=== PATIENT | female | born 1930 ===

== ENCOUNTER 2016-11-10 11:43 | Observation (INO) | payer MEDICARE ==
[2016-11-10 11:43] VITALS: BMI 32.5
[2016-11-10 12:24] VITALS: RESP 18
[2016-11-10] MEDS ORDERED: Sodium Chloride 0.9% 1,000 ML IV STA (13:34)
--- NOTE | 2016-11-10 13:40 | ED PDOC ---
HPI: General Adult Time Seen by Provider: 11/10/16 12:20 Chief Complaint (Nursing): Female Genitourinary Chief Complaint (Provider): Abdominal Pain/Vaginal Discharge History Per: Patient History/Exam Limitations: no limitations Onset/Duration Of Symptoms: Persistent (~1 month) Current Symptoms Are (Timing): Still Present Additional Complaint(s): Vikram Christine is an 86 year old female with a history of hypertension, GI ulcers, high lipids, hypothyroidism, and a family history of cancer that presents to the ED with a chief complaint of diffuse abdominal pain that is worse at night, as well vaginal discharge that appears to be mucus that she has been experiencing for the last month. She denies any fever, nausea, or vomiting. Of Note: Patient was recently worked up for an endometrial mass, and had a CT Scan performed last month that showed a suspicious finding in the endometrium. Patient had a follow up biopsy, which did not note any malignancy. She reports that she wants to follow up with an oncologist, and was referred to one by her PMD, Dr. Mcallister, but presents to the ED for pain control in the meantime. Past Medical History Reviewed: Historical Data, Nursing Documentation, Vital Signs Vital Signs: Last Vital Signs Temp 97.6 F 11/10/16 17:46 Pulse 80 11/10/16 17:46 Resp 18 11/10/16 17:46 BP 127/82 11/10/16 17:46 Pulse Ox 96 11/10/16 15:39 - Medical History PMH: Deep Vein Thrombosis, Gastritis, Gastrointestinal Ulcer, HTN, Hyperlipidemia, Hypothyroidism, Sleep Apnea Denies: Chronic Kidney Disease - Family History Family History: States: Unknown Family Hx - Social History Ex-Smoker (has not smoked in the last 12 months): Yes Alcohol: None Drugs: Denies - Immunization History Hx Tetanus Toxoid Vaccination: No Hx Influenza Vaccination: No Hx Pneumococcal Vaccination: No - Home Medications Home Medications: Ambulatory Orders Medication Instructions Recorded Glimepiride 4 mg PO DAILY 08/06/15 Levothyroxine [Synthroid] 75 mcg PO DAILY 08/06/15 Losartan [Cozaar] 50 mg PO DAILY 08/06/15 [place]-3 Fatty Acids [[place]-3] 1,000 mg PO DAILY 11/10/16 Vitamin B Complex [Balance B-50] 1 tab PO DAILY 11/10/16 - Allergies Allergies/Adverse Reactions: Allergies Allergy/AdvReac Type Severity Reaction Status Date / Time Penicillins Allergy Mild RASH Verified 11/10/16 17:18 aspirin Allergy RASH Verified 11/10/16 17:18 Sulfa (Sulfonamide Allergy RASH Verified 11/10/16 17:18 Antibiotics) anesthesia med Allergy RASH Uncoded 11/10/16 17:18 Review of Systems Constitutional: Negative for: Fever Gastrointestinal: Positive for: Abdominal Pain (diffuse, worse at night). Negative for: Nausea, Vomiting Genitourinary Female: Positive for: Vaginal Discharge (appears to be mucus) Physical Exam - Reviewed Nursing Documentation Reviewed: Yes Vital Signs Reviewed: Yes - Physical Exam Appears: Positive for: Non-toxic, No Acute Distress Head Exam: Positive for: ATRAUMATIC, NORMOCEPHALIC Skin: Positive for: Normal Color, Warm Cardiovascular/Chest: Positive for: Regular Rate, Rhythm. Negative for: Murmur Respiratory: Positive for: Normal Breath Sounds. Negative for: Wheezing Gastrointestinal/Abdominal: Positive for: Normal Exam, Soft. Negative for: Tenderness Neurologic/Psych: Positive for: Alert, Oriented. Negative for: Motor/Sensory Deficits - Laboratory Results Result Diagrams: 11/10/16 13:48 11/10/16 13:48 - ECG O2 Sat by Pulse Oximetry: 96 (RA) Pulse Ox Interpretation: Normal Medical Decision Making Medical Decision Making: Impression: Abdominal Pain Plan: * CMP * CBC * Lipase * Urine C&S * Urinalysis * Pepcid 20 mg IV * NaCl 1000 mL at 1000 mLs/hr * Zofran Inj 4 mg IV * Reevaluation CT Abdomen and Pelvis with Contrast obtained from [facility] - Official Read: IMPRESSION: 1. Soft tissue in the endometrium with some fluid also noted in the endometrial canal. The possibility of endometrial cancer should be considered. Multiple enlasrged lymph nodes are noted in the retroperitoneum and in the pelvis, especially along the iliac chains and alond the pelvic sidewalls. 2. Liver appears homogenous. No aggressive osseous lesions are seen. The lung bases are essentially clear with minimal atelectatic changes. 3. Diverticulosis. No evidence of diverticulitis. 4. Mesenteric panniculitis. END IMPRESSION: Pelon Peoples MD Patient reevaluated and continues to have pain, she was given Morphine. Spoke to Medical Canine Service Instructor Trainer who accepted admission of the patient for intractable pain. 15:38: Spoke with Dr. ramirez who is plant controls specialist, and will order an US. Scribe Attestation: Documented by Karlee Enamorado and Joanne Ross, acting as a scribe for Cammie Rodgers MD. Provider Scribe Attestation: All medical record entries made by the Scribe were at my direction and personally dictated by me. I have reviewed the chart and agree that the record accurately reflects my personal performance of the history, physical exam, medical decision making, and the department course for this patient. I have also personally directed, reviewed, and agree with the discharge instructions and disposition. Disposition - Clinical Impression Clinical Impression: Female genitourinary symptoms - Patient ED Disposition Is Patient to be Admitted: Yes Counseled Patient/Family Regarding: Studies Performed, Diagnosis - Disposition Disposition Time: 15:00 Condition: STABLE
[2016-11-10 14:10] LABS: RBC URINE 14 /hpf (0-3); URINE BILIRUBIN NEGATIVE (NEGATIVE); URINE BLOOD NEGATIVE (NEGATIVE); URINE COLOR AMBER (YELLOW); URINE GLUCOSE (UA) NEG (Normal); URINE KETONE NEGATIVE (NEGATIVE); URINE LEUKOCYTE ESTERASE LARGE Leu/uL (Negative); URINE PROTEIN 30 mg/dL (NEGATIVE); URINE UROBILINOGEN 0.2-1.0 mg/dL (0.2-1.0); WBC URINE 44 /hpf (0-5)
[2016-11-10 14:12] LABS: BASO % 0.6 % (0.0-2.0); EOS # 0.1 K/uL (0.0-0.7); EOS % 1.8 % (0.0-4.0); HEMATOCRIT 40.8 % (34.0-47.0); LYMPH # 1.5 K/uL (1.0-4.3); LYMPH % 26.7 % (20.0-40.0); MEAN CELL VOLUME 97.1 fl (81.0-99.0); MEAN CORPUSCULAR HEMOGLOBIN 33.8 pg (27.0-31.0); MEAN CORPUSCULAR HGB CONC 34.8 g/dL (33.0-37.0); MONO # 0.5 K/uL (0.0-0.8); MONO % 9.5 % (0.0-10.0); NEUT # 3.4 K/uL (1.8-7.0); NEUT % 61.4 % (50.0-75.0); NRBC % 0.1 % (0.0-0.0); RED CELL DISTRIBUTION WIDTH 14.1 % (11.5-14.5); WHITE BLOOD COUNT 5.6 K/uL (4.8-10.8)
[2016-11-10 14:28] LABS: ALB/GLOB RATIO 1.1 (1.0-2.1); ALKALINE PHOSPHATASE 63 U/L (38-126); ALT/SGPT 38 U/L (9-52); AST/SGOT 33 U/L (14-36); BILIRUBIN,TOTAL 0.8 mg/dl (0.2-1.3); BLOOD UREA NITROGEN 21 mg/dl (7-17); CALCIUM 9.9 mg/dL (8.4-10.2); CARBON DIOXIDE 26 mmol/L (22-30); CHLORIDE 106 mmol/L (98-107); GFR AFRICAN-AMERICAN > 60; GLUCOSE,RANDOM 86 mg/dL (65-105); LIPASE 113 U/L (23-300); POTASSIUM 4.4 MMOL/L (3.6-5.0); SODIUM 143 mmol/l (132-148); TOTAL PROTEIN 8.4 G/DL (6.3-8.2)
--- NOTE | 2016-11-10 18:43 | US ---
Indication: Possible endometrial mass Pelvis ultrasound Technique: Transabdominal pelvic ultrasound Comparison: None available Findings: Limited transabdominal pelvic ultrasound. The patient was unable to maintain adequately filled urinary bladder for this examination. The uterus measures approximately 8.7 x 3.6 x 5.6 cm. Anteverted. Several uterine calcifications are evident. Suspect 1.6 x 0.5 x 1.4 cm calcified uterine fibroid superiorly. The endometrium is not well visualized ; a measurement was provided of approximately 5 mm. Bilateral ovaries are not visualized. No significant pelvic free fluid is seen. Impression: Extremely limited transabdominal pelvic ultrasound as above. Bilateral ovaries were not seen. The endometrium was not visualized to satisfaction. The patient presents with outside CT report from 10/20/16 which indicates presence of pelvic mass which is not adequately assessed on this study. Correlate clinically and further evaluation as indicated. Several uterine calcifications are noted. Suspect the presence of 1.6 cm calcified uterine fibroid.
[2016-11-10] MEDS: Insulin Regular 100 units/ml SC SCH (22:43)
--- NOTE | 2016-11-10 23:12 | CP.PCM.CON ---
History of Present Illness - History of Present Illness History of Present Illness: The patient is an 86 y/o woman with a history of hypertension, diabetes mellitus type 2, GI ulcers, hyperlipidemia, hypothyroidism, and a family history of cancer that presents to the ED with a chief complaint of diffuse abdominal pain that is worse at night, as well vaginal discharge that appears to be mucus that she has been experiencing for the last month. Patient reports pruritus but denies vaginal bleeding or abnormal odor. She denies any fever, nausea, or vomiting. Patient denies sexually activity and history of STDs. Patient had menopause at age 51 and menarche at age 14. Patient was recently worked up for an endometrial mass, and had a CT Scan performed last month that showed a suspicious finding in the endometrium. Patient had a follow up biopsy, which did not note any malignancy. She reports that she wants to follow up with an oncologist, and was referred to one by her PMD, Dr. Mcallister, but presents to the ED for pain control in the meantime. OBHx: x2 , x2 SAB (twins) HOLISTIC NUTRITIONIST: menopause age 51, menarche age 14, no Hx of dysmenorrhea, no Hx of STDs SOC: denies smoking, alcohol, and drugs; denies sexual activity in in the past 2 years ROS: negative for 12 points reviewed Review of Systems - Review of Systems All systems: reviewed and no additional remarkable complaints except - Constitutional Constitutional: absent: Fever - Cardiovascular Cardiovascular: absent: Chest Pain - Respiratory Respiratory: absent: Dyspnea - Gastrointestinal Gastrointestinal: As Per HPI - Genitourinary Genitourinary: absent: Change in Urinary Stream, Dysuria, Hematuria - Reproductive: Female Reproductive:Female: Menopausal, Vaginal Pruritis. absent: Genital Lesions, Vaginal Odor Past Patient History - Infectious Disease Hx of Infectious Diseases: None - Past Medical History & Family History Past Medical History?: Yes - Past Social History Alcohol: None Drugs: Denies - CARDIAC Hx Hypertension: Yes - PULMONARY Hx Sleep Apnea: Yes - NEUROLOGICAL Hx Neurological Disorder: Yes - HEENT Hx HEENT Problems: Yes Hx Cataracts: Yes (removed) - RENAL Hx Chronic Kidney Disease: No - ENDOCRINE/METABOLIC Hx Hypothyroidism: Yes - HEMATOLOGICAL/ONCOLOGICAL Hx Blood Disorders: No - INTEGUMENTARY Hx Dermatological Problems: No - MUSCULOSKELETAL/RHEUMATOLOGICAL Hx Musculoskeletal Disorders: No Other/Comment: thrombosis - GASTROINTESTINAL Hx Gastritis: Yes - GENITOURINARY/GYNECOLOGICAL Hx Genitourinary Disorders: Yes - PSYCHIATRIC Hx Psychophysiologic Disorder: No - SURGICAL HISTORY Hx Surgeries: Yes Hx Cataract Extraction: Yes (TRINY) Hx Orthopedic Surgery: Yes (HEEL SPUR) Hx Vascular Surgery: Yes (VARICOSE VEIN REMOVAL) - ANESTHESIA Hx Anesthesia: Yes Hx Anesthesia Reactions: No Hx Malignant Hyperthermia: No Meds Allergies/Adverse Reactions: Allergies Allergy/AdvReac Type Severity Reaction Status Date / Time Penicillins Allergy Mild RASH Verified 11/10/16 17:18 aspirin Allergy RASH Verified 11/10/16 17:18 Sulfa (Sulfonamide Allergy RASH Verified 11/10/16 17:18 Antibiotics) anesthesia med Allergy RASH Uncoded 11/10/16 17:18 - Medications Medications: Current Medications Fluconazole (Diflucan) 100 mg PO DAILY [facility] Glipizide (Glucotrol Xl) 10 mg PO DAILY [facility] Home Med (Vitamin B Complex [Balance B-50]) 1 tab PO DAILY [facility] Insulin Human Regular (Humulin R) 0 units SC ACCU-CHECK SHAHID PRN Reason: Protocol Levothyroxine Sodium (Synthroid) 75 mcg PO DAILY@0630 [facility] Losartan Potassium (Cozaar) 50 mg PO DAILY [facility] Ltuus-8-Mplc Ethyl Esters (Lovaza) 1 gm PO DAILY [facility] Physical Exam - Constitutional Appears: No Acute Distress - Head Exam Head Exam: ATRAUMATIC, NORMOCEPHALIC - Respiratory Exam Respiratory Exam: Clear to Auscultation Bilateral - Cardiovascular Exam Cardiovascular Exam: REGULAR RHYTHM - Exam Speculum exam: Vaginal Discharge. absent: Foreign Body, Laceration, Vaginal Bleeding Bimanual exam: absent: Adenexal Mass, Cervical Motion Tendernes, Uterine Tenderness Results - Vital Signs Recent Vital Signs: Last Vital Signs Temp 98.2 F 11/10/16 20:44 Pulse 85 11/10/16 20:44 Resp 18 11/10/16 20:44 BP 113/74 11/10/16 20:44 Pulse Ox 98 11/10/16 20:44 - Labs Result Diagrams: 11/10/16 13:48 11/10/16 13:48 Labs: Laboratory Results - last 24 hr 11/10/16 21:23 POC Glucose (mg/dL) 141 H Assessment & Plan - Assessment and Plan (Free Text) Assessment: The patient is an 86 y/o woman with a history of hypertension, diabetes mellitus type 2, GI ulcers, hyperlipidemia, hypothyroidism, and a family history of cancer that presents w/ vaginal discharge and pruritus Plan: 1. vaginal discharge - speculum exam shows vaginal discharge, white, mucus; no lesions, no bleeding - bimanual exam shows no adnexal tenderness, no cervical motion tenderness - cultures taken, follow up results - clotrimazole topical cream for candidiasis 2. Enodmetrial mass - endometrial biopsy 10/14/2016: negative for malignancy, atrophic endometrium, squamous epithelium w/o cytologic atypia - CT 10/20/2016: soft tissue in endometrium w/ some fluid, multiple enlarged lymph nodes in retroperitoneum and pelvis - pelvic U/S 11/10/2016: limited study - follow up w/ director of user experience oncologist
[2016-11-11] MEDS ORDERED: Levothyroxine 75 MCG TAB PO SCH (06:30)
[2016-11-11] MEDS: Insulin Regular 100 units/ml SC SCH ×2 (08:00→13:18)
[2016-11-11] MEDS ORDERED: Omega-3-Acid Ethyl Esters 1 GM Cap PO SCH (09:00)
[2016-11-11] MEDS ORDERED: GlipiZIDE 10 mg SR Tab PO SCH (09:00)
[2016-11-11] MEDS ORDERED: Multivitamin Vitamin B Complex (Nephro-Vite) Tab PO SCH (09:00)
--- NOTE | 2016-11-11 12:20 | CP.PCM.HP ---
History of Present Illness - History of Present Illness History of Present Illness: Vikram Christine is an 86 year old female with a history of hypertension, GI ulcers, high lipids, hypothyroidism, and a family history of cancer that presents to the ED with a chief complaint of diffuse abdominal pain that is worse at night, as well vaginal discharge that appears to be mucus that she has been experiencing for the last month. She denies any fever, nausea, or vomiting. Patient was recently worked up for an endometrial mass, and had a CT Scan performed last month that showed a suspicious finding in the endometrium. Patient had a follow up biopsy, which did not note any malignancy. She reports that she wants to follow up with an oncologist, and was referred to one by her PMD, Dr. Mcallister, but presents to the ED for pain control in the meantime. Present on Admission - Present on Admission History of DVT/PE: No History of Uncontrolled Diabetes: No Urinary Catheter: No Decubitus Ulcer Present: No Review of Systems - EENT Eyes: As Per HPI Ears: As Per HPI Nose/Mouth/Throat: As Per HPI - Breasts Breasts: As Per HPI - Cardiovascular Cardiovascular: As Per HPI - Genitourinary Genitourinary: As Per HPI - Reproductive: Female Reproductive:Female: Vaginal Discharge, Vaginal Odor, Vaginal Pruritis Past Patient History - Infectious Disease Hx of Infectious Diseases: None - Past Medical History & Family History Past Medical History?: Yes - Past Social History Alcohol: None Drugs: Denies - CARDIAC Hx Hypertension: Yes - PULMONARY Hx Sleep Apnea: Yes - NEUROLOGICAL Hx Neurological Disorder: Yes - HEENT Hx HEENT Problems: Yes Hx Cataracts: Yes (removed) - RENAL Hx Chronic Kidney Disease: No - ENDOCRINE/METABOLIC Hx Hypothyroidism: Yes - HEMATOLOGICAL/ONCOLOGICAL Hx Blood Disorders: No - INTEGUMENTARY Hx Dermatological Problems: No - MUSCULOSKELETAL/RHEUMATOLOGICAL Hx Musculoskeletal Disorders: No Other/Comment: thrombosis - GASTROINTESTINAL Hx Gastritis: Yes - GENITOURINARY/GYNECOLOGICAL Hx Genitourinary Disorders: Yes - PSYCHIATRIC Hx Psychophysiologic Disorder: No - SURGICAL HISTORY Hx Surgeries: Yes Hx Cataract Extraction: Yes (TRINY) Hx Orthopedic Surgery: Yes (HEEL SPUR) Hx Vascular Surgery: Yes (VARICOSE VEIN REMOVAL) - ANESTHESIA Hx Anesthesia: Yes Hx Anesthesia Reactions: No Hx Malignant Hyperthermia: No Meds Home Medications: Home Medication List Medication Instructions Recorded Confirmed Type Clotrimazole 1% Vaginal [Lotrimin 1 applic VG HS #1 tub 11/11/16 Rx 1% Vaginal] Allergies/Adverse Reactions: Allergies Allergy/AdvReac Type Severity Reaction Status Date / Time Penicillins Allergy Mild RASH Verified 11/10/16 17:18 aspirin Allergy RASH Verified 11/10/16 17:18 Sulfa (Sulfonamide Allergy RASH Verified 11/10/16 17:18 Antibiotics) anesthesia med Allergy RASH Uncoded 11/10/16 17:18 Physical Exam - Constitutional Appears: Well, No Acute Distress, In Acute Distress - Head Exam Head Exam: ATRAUMATIC, NORMAL INSPECTION, NORMOCEPHALIC - Eye Exam Eye Exam: Normal appearance Pupil Exam: NORMAL ACCOMODATION, PERRL - ENT Exam ENT Exam: Mucous Membranes Moist, Normal Exam - Respiratory Exam Respiratory Exam: Clear to Auscultation Bilateral, NORMAL BREATHING PATTERN - Cardiovascular Exam Cardiovascular Exam: REGULAR RHYTHM - GI/Abdominal Exam GI & Abdominal Exam: Normal Bowel Sounds - Rectal Exam Rectal Exam: NORMAL INSPECTION - Exam Exam: NORMAL INSPECTION Speculum exam: Vaginal Discharge Results - Vital Signs Recent Vital Signs: Last Vital Signs Temp 98.4 F 11/11/16 08:00 Pulse 63 11/11/16 08:16 Resp 18 11/11/16 08:00 BP 130/68 11/11/16 08:16 Pulse Ox 95 11/11/16 08:00 - Labs Result Diagrams: 11/10/16 13:48 11/10/16 13:48 Labs: Laboratory Results - last 24 hr 11/10/16 11/11/16 11/11/16 21:23 05:32 11:28 POC Glucose (mg/dL) 141 H 89 210 H Assessment & Plan - Assessment and Plan (Free Text) Assessment: abdominal pain-resolved, tolerating diet candidiasis with vaginal discharge, pruritus -seen by STAGE BUILDER-started on clotrimazole daily -endometrial mass: endometrial biopsy 10/14/2016: negative for malignancy, atrophic endometrium, squamous epithelium w/o cytologic atypia CT 10/20/2016: soft tissue in endometrium w/ some fluid, multiple enlarged lymph nodes in retroperitoneum and pelvis pelvic U/S 11/10/2016: limited study Discussed with OB resident, Mike working with Dr Gr, patients needs to follow up with STAGE [employer]IL[employer] oncologist outpatient for follow up treatment. Will refer to STAGE BUILDER oncology. Patient medically stable for discharge at this time rx for clotrimazole given - Date & Time Date: 11/11/16 Time: 12:20
[2016-11-11 12:37] VITALS: BP 154/82; PULSE 57; TEMP 98; O2SAT 97
== END 2016-11-11 14:20 | disposition home or self-care (01) ==
LOC: H.ER 11:43 → INTOOBSV 15:25 → H.ERHOLD 15:25 → H.TEL 21:50
PROVIDERS: ADMIT Family Medicine; ATTEND Family Medicine
DX: R10.84 Generalized abdominal pain (principal); B37.9 Candidiasis, unspecified; E03.9 Hypothyroidism, unspecified; E11.9 Type 2 diabetes mellitus without complications; E78.5 Hyperlipidemia, unspecified; G47.30 Sleep apnea, unspecified; I10 Essential (primary) hypertension; L29.9 Pruritus, unspecified; N85.9 Noninflammatory disorder of uterus, unspecified; N89.8 Other specified noninflammatory disorders of vagina; Z80.9 Family history of malignant neoplasm, unspecified; Z88.6 Allergy status to analgesic agent; Z88.0 Allergy status to penicillin; Z88.2 Allergy status to sulfonamides; Z86.718 Personal history of other venous thrombosis and embolism; K29.70 Gastritis, unspecified, without bleeding
CPT/HCPCS: 76856; 80053; 81003; 82948; 83690; 85025; 87070; 87086; 96361; 96374; 96375; 99285; G0378; J2405; J7040

== ENCOUNTER 2017-02-08 09:05 | Day surgery (SDC) | payer MEDICARE ==
[2017-02-08] MEDS ORDERED: Lactated Ringer's 500 ML IV ONE (11:40)
[2017-02-08] MEDS ORDERED: Etomidate 20 mg/10ml Inj IV ONE (11:53)
[2017-02-08] MEDS ORDERED: Propofol 10 mg/ml Inj (20 ML) ONE (11:53)
[2017-02-08 12:11] VITALS: TEMP 97
[2017-02-08 12:23] VITALS: BP 123/69; PULSE 69; RESP 15; O2SAT 97
== END 2017-02-08 12:24 | disposition home or self-care (01) ==
LOC: H.ENDO 09:05
PROVIDERS: ATTEND Internal Medicine Gastroenterology
DX: R12 Heartburn (principal); E11.9 Type 2 diabetes mellitus without complications; E03.9 Hypothyroidism, unspecified; K44.9 Diaphragmatic hernia without obstruction or gangrene; K31.9 Disease of stomach and duodenum, unspecified
CPT/HCPCS: 43239; 88305; J2001; J2704; J7120

== ENCOUNTER 2017-02-19 07:54 | Day surgery (SDC) | payer MEDICARE ==
[2017-02-19 08:13] VITALS: BMI 33.3
[2017-02-19] MEDS ORDERED: Clindamycin 600 MG in Sodium Chloride 0.9% 100 ML IVPB ONE (08:30)
[2017-02-19] MEDS ORDERED: Bupivacaine 0.5% Inj(30mL) IJ ONE ×2 (08:30→10:37)
[2017-02-19] MEDS ORDERED: Sodium Chloride 0.9% 1,000 ML IV SCH (08:30)
[2017-02-19] MEDS ORDERED: Lidocaine 1% Inj (20ml) IJ ONE ×2 (08:30→10:37)
--- NOTE | 2017-02-19 08:35 | CP.SDSHP ---
Same Day Surgery H & P - History Proposed Procedure: Left foot 5th Hammertoe repair, resection of bony neoplasm Pre-Op Diagnosis: 5th digit hammertoe/possible neoplasm left foot - Allergies Allergies: Allergies Penicillins Allergy (Mild, Verified 02/08/17 11:38) RASH aspirin Allergy (Verified 02/08/17 11:38) RASH Sulfa (Sulfonamide Antibiotics) Allergy (Verified 02/08/17 11:38) RASH anesthesia med Allergy (Uncoded 02/08/17 11:38) RASH - Physical Exam Mental Status: Alert & Oriented x3 Neuro: WNL Heart: WNL Lungs: WNL GI: WNL - {Optional Preform as Required} Ortho: Other - Impression Impression: Pt was seen and examined in SDS. Pt NPO status was confirmed. All Pre-op testing and clearance was in the chart. Pt has exhausted all conservative treatment at this time and is opting for surgical intervention. Pt was explained procedure and post-operative course. All pt's questions were answered to satisfaction. No guarantees were made. Pt understands all risks, benefits and complications of procedure. Pt will follow-up with Dr. Perdomo Short Stay Discharge - Short Stay Discharge Admitting Diagnosis/Reason for Visit: D48.1/ M20.42/ Disposition: HOME/ ROUTINE Referrals: FAMILY PROVIDER,NO [Primary Care Provider] - Additional Instructions (Diet, Activity): Patient in good/stable condition for discharge home. Pt to resume medications per medical reconciliation. Resume regular diet. Please keep dressing clean, dry, & intact to surgical site, use plastic bag over bandage for showering, wear post op shoe at all times when ambulating, call clinic if you see signs of infection (redness, swelling, malodor), please make an appointment to see Dr. Perdomo in office/clinic within 1 week for post-op check. Progress Note/Discharge Note with Instructions: - Patient evaluated bedside in recovery s/p surgical procedure. - After surgical procedure patient in NAD - (+) Void, (+) Appetite - Capillary refill time <3s and NVSI intact. - Patient denies complaints at this time - Post operative instructions and plan of care explained to patient at length. - Pt. acknowledges understanding. - Patient stable for DC per podiatric surgery
--- NOTE | 2017-02-19 08:41 | CP.PCM.PN ---
Subjective - Date & Time of Evaluation Date of Evaluation: 02/19/17 Time of Evaluation: 08:35 - Subjective Subjective: 86 y/o female with PMHx of DM, hypothyroidism, and hx of DVT seen at bedside in [facility] for left foot 5th digit hammertoe repair, resection of bony neoplasm. Patient states that the 5th toe is starting to rub in her shoe and cause her pain which led her decision to have the surgery. Patient states that she has been NPO since 6 pm yesterday. Patient states that she does not tolerate anesthesia well. Patient denies of any recent F/N/V/C/SOB/CP today. Patient denies of any other pedal complains at this time PMHx: DM, Hypothyroidism, Hx of DVT PSHx: Right foot surgery, Eye surgery Allergies: Penicillins, Aspirin, Sulfa drugs, adverse reaction to anesthesia Objective - Medications Medications: Current Medications Bupivacaine HCl (Marcaine 0.5%) 50 ml IJ ONCE ONE Stop: 02/19/17 08:31 Clindamycin Phosphate 600 mg/ (Sodium Chloride) 54 mls @ 54 mls/hr IVPB ONCE ONE Stop: 02/19/17 09:29 Sodium Chloride (Sodium Chloride 0.9%) 1,000 mls @ 120 mls/hr IV .Q8H20M SHAHID Stop: 02/20/17 08:31 Lidocaine HCl (Lidocaine 1% (20ml)) 20 ml IJ ONCE ONE Stop: 02/19/17 08:31 - Constitutional Appears: Well, Non-toxic, No Acute Distress - Extremities Exam Additional comments: Left LE focused exam: VASC: DP/PT pulses are palpable 2/4, MEDICAL ANTHROPOLOGY DIRECTOR: < 3 sec to all digits, Temp gradient: warm to cool from proximal to distal, +1 pitting edema noted on the dorsum of the foot DERM: no erythema, no open lesions, no clinical suspicion of active infection NEURO: Protective sensation grossly intact ORTHO: hammering of the 5th digit, minimal tenderness on palpation of the 5th digit - Neurological Exam Neurological Exam: Alert, Awake, Oriented x3 - Psychiatric Exam Psychiatric exam: Normal Affect, Normal Mood Assessment and Plan - Assessment and Plan (Free Text) Assessment: 86 y/o female seen at bedside in [facility] for 5th digit hammer toe/neoplasm correction on the left foot Plan: Pt was seen and examined in [facility] Pt NPO status was confirmed All Pre-op testing and clearance was in the chart Pt has exhausted all conservative treatment at this time and is opting for surgical intervention Pt was explained procedure and post-operative course All pt's questions were answered to satisfaction No guarantees were made Pt understands all risks, benefits and complications of procedure Pt will follow-up with Dr. Perdomo
[2017-02-19] MEDS ORDERED: Lactated Ringer's 500 ML IV ONE (09:20)
[2017-02-19 09:43] LABS: HEMATOCRIT 39.5 % (34.0-47.0); MEAN CELL VOLUME 98.3 fl (81.0-99.0); MEAN CORPUSCULAR HEMOGLOBIN 33.4 pg (27.0-31.0); RED CELL DISTRIBUTION WIDTH 13.3 % (11.5-14.5); WHITE BLOOD COUNT 5.5 K/uL (4.8-10.8)
[2017-02-19 09:57] LABS: PARTIAL THROMBOPLASTIN TIME 28.1 Seconds (25.6-37.1)
[2017-02-19] MEDS ORDERED: Bupivacaine 0.5% Inj(30mL) ONE (10:00)
[2017-02-19] MEDS ORDERED: Lidocaine 1% Inj (20ml) ONE (10:00)
[2017-02-19 10:03] LABS: BLOOD UREA NITROGEN 18 mg/dl (7-17); CALCIUM 9.5 mg/dL (8.4-10.2); CARBON DIOXIDE 23 mmol/L (22-30); CHLORIDE 107 mmol/L (98-107); GFR AFRICAN-AMERICAN > 60; GLUCOSE,RANDOM 90 mg/dL (65-105); POTASSIUM 3.9 MMOL/L (3.6-5.0); SODIUM 145 mmol/l (132-148)
[2017-02-19] MEDS ORDERED: Propofol 10 mg/ml Inj (20 ML) ONE (10:15)
[2017-02-19] MEDS ORDERED: Midazolam 2 MG/2 ML VIAL ONE (10:16)
[2017-02-19] MEDS ORDERED: Bupivacaine 0.5% 50 ML IJ ONE (11:00)
[2017-02-19] MEDS ORDERED: Dexamethasone 4 mg/1 ml IM ONE (11:00)
[2017-02-19] MEDS ORDERED: Dexamethasone 4 mg/1 ml ONE (11:08)
--- NOTE | 2017-02-19 11:14 | PCM.SURG1 ---
Surgeon's Initial Post Op Note - Surgeon's Notes Surgeon: Dr. Jonathan Perdomo DPM Coater Smoking Pipe: Dr. White (PGY-2), Dr. Hills (PGY-1) Type of Anesthesia: IV Sedation, Local Anesthesia Administered By: Dr. 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 M:4-5 K wire, 2-0. 4-0 nylone. I: 1 cc of dexamethasone, 4 cc of 0.5% marcain plain Post-Operative Diagnosis: same Operation Performed: Left foot 5th digit Hammer toe repair, removal of soft tissue calcification Specimen/Specimens Removed: Calcification soft tissue mass Estimated Blood Loss: EBL {In ML}: 1 Blood Products Given: N/A Drains Used: No Drains Post-Op Condition: Good Date of Surgery/Procedure: 02/19/17 Time of Surgery/Procedure: 11:16
[2017-02-19] MEDS ORDERED: HYDROmorphone 0.5 mg/0.5 ml ISec IVP PRN (11:17)
[2017-02-19] MEDS ORDERED: Lactated Ringer's 1,000 ML IV SCH (11:30)
--- NOTE | 2017-02-19 11:58 | RAD ---
HISTORY: preop COMPARISON: No prior. TECHNIQUE: Chest PA and lateral FINDINGS: LUNGS: No active pulmonary disease. PLEURA: No significant pleural effusion identified. No pneumothorax apparent. CARDIOVASCULAR: Normal. OSSEOUS STRUCTURES: No significant abnormalities. VISUALIZED UPPER ABDOMEN: Normal. OTHER FINDINGS: None. IMPRESSION: No active disease.
[2017-02-19 12:17] VITALS: RESP 20
--- NOTE | 2017-02-19 12:51 | RAD ---
PROCEDURE: Left Foot Radiographs. HISTORY: s/p left foot surgery COMPARISON: None. FINDINGS: BONES: A status post distal proximal phalanx osteotomy and fixation of the interphalangeal joints of the left 5th digit by a solitary K-wire. Otherwise, degenerate changes seen throughout the digits diffusely. Postop changes seen in soft tissues related to the 5th digit no suspicious lytic or blastic changes. JOINTS: As above peer SOFT TISSUES: As above. OTHER FINDINGS: None. IMPRESSION: Postop changes left 5th digit as discussed above.
[2017-02-19 14:18] VITALS: BP 121/76; PULSE 78; TEMP 97.8; O2SAT 97
--- NOTE | 2017-02-20 06:00 | OP ---
PROCEDURE DATE: 02/19/2017 PREOPERATIVE DIAGNOSES: 1. Left foot bony tumor, fifth digit. 2. Left foot hammertoe deformity, fifth digit. POSTOPERATIVE DIAGNOSES: 1. Left foot bony tumor, fifth digit. 2. Left foot hammertoe deformity, fifth digit. PROCEDURE: 1. Excisional biopsy, fifth toe tumor left foot. 2. Proximal interphalangeal joint arthroplasty with K-wire fixation, left foot fifth digit. SURGEON: Jonathan Perdomo DPM. ASSISTANTS: Natalia White DPM, PGY-2; Edy Hills DPM, PGY-1. TYPE OF ANESTHESIA: IV sedation with local. ANESTHESIA ADMINISTERED BY: Sonam Maciel MD. INDICATION: The patient is an 86-year-old female with the above-mentioned diagnoses. The patient has exhausted all conservative treatments at this time and now requires surgical interventions. The patient signed the consent after careful explanation of risks, benefits, complications and alternatives for surgical procedure. No guarantees were given or implied. PREPARATION: The patient was brought into the operating room and placed on the operating room table in a supine position. A well-padded pneumatic ankle tourniquet was applied to the patient's left ankle on the supramalleolar position. A time-out was performed for identification of correct patient and procedure. The patient received a total of 10 mL of 1:1 mixture of 1% lidocaine plain and 0.5% Marcaine plain in a local block fashion to the left fifth digit. Once local anesthesia was achieved, the left foot was then prepped and draped in the normal sterile manner and the procedure began. PROCEDURE 1: Excisional biopsy of the fifth toe tumor on the left foot: Attention was directed to the dorsal aspect of the fifth digit where an approximately 2 cm linear longitudinal incision was made over the prominence on the digit. Sharp dissection was carried down to the subcutaneous tissue being careful to identify and retract all vital neurovascular structures. All bleeders were ligated and cauterized as necessary. The mass was then noted and then excisionally removed from the digit utilizing pickups and a #15 blade and then passed off the field and sent for pathology. The mass measured approximately 0.3 cm x 0.4 cm calcification. The site was then irrigated with copious amounts of normal sterile saline. PROCEDURE 2: Left fifth digit PIPJ arthroplasty: Next, via the original incision, sharp dissection was carried down to the deep tissues being careful to identify and retract all vital neurovascular structures. At this time, a transverse tenotomy and capsulotomy was performed to the proximal interphalangeal joint and then the head of the proximal phalanx was then freed off the capsular ligamentous attachments. Next, utilizing an oscillating bone saw, the head of the proximal phalanx was resected and passed from the operative field. Attention was then directed back to the fifth digit where a 0.045 inch K-wire was driven from the base of the middle phalanx at the fifth digit. The K-wire was then retrograded proximally into the remaining aspect of the proximal phalanx. Correction of the deformity was assessed at this time and noted to be excellent. The surgical site was then irrigated with copious amounts of normal sterile saline. The tendon was reapproximated with 4-0 Vicryl. The subcutaneous tissue was approximated with 4-0 Vicryl and the skin was sutured with #4-0 nylon. A postoperative block consisting of 4 mL of 0.5% Marcaine and 4 mg of dexamethasone was given in a local block fashion. The surgical site was then dressed with saline-soaked gauze, 4 x 4s, Nicki, and lastly Tensoplast. POSTOPERATIVE CONDITION: The patient tolerated the anesthesia and procedure well and was escorted to the recovery room with vital signs stable and neurovascular structures intact to the left foot. The patient will follow up with Dr. Perdomo in his office as an outpatient. Natalia White DPM Jonathan Perdomo DPM MARK
--- NOTE | 2017-02-20 12:14 | CARD ---
APPROVED REPORT EKG Measurement Heart [id number] <Conclusion> Normal sinus rhythm Normal ECG
== END 2017-02-19 15:05 | disposition home or self-care (01) ==
LOC: H.OPSURG 07:54
PROVIDERS: ATTEND Podiatrist
DX: D48.1 Neoplasm of uncertain behavior of connective and other soft tissue (principal); M20.42 Other hammer toe(s) (acquired), left foot; E11.51 Type 2 diabetes mellitus with diabetic peripheral angiopathy without gangrene; I10 Essential (primary) hypertension; K21.9 Gastro-esophageal reflux disease without esophagitis
CPT/HCPCS: 28285; 28899; 36415; 71020; 73620; 80048; 82948; 85027; 85610; 85730; 88304; 88311; 93005; 97116; 97161; C1713; G8978; G8979; G8980; J1100; J2001; J2250; J2704; J3010; J7030; J7040; J7120